=== PATIENT | male | born 1945 | race Caucasian/White ===

== ENCOUNTER 2020-03-15 19:46 | Emergency (ER) | payer MEDICARE ==
[2020-03-15 20:14] LABS: BILIRUBIN,URINE NEGATIVE (NEGATIVE); GLUCOSE, URINE (UA) NEGATIVE (NEGATIVE); KETONES,URINE (UA) NEGATIVE (NEGATIVE); LEUKOCYTE ESTERASE, URINE MODERATE (NEGATIVE); NITRITE,URINE POSITIVE (NEGATIVE); OCCULT BLOOD,URINE MODERATE (NEGATIVE); PROTEIN,URINE 30 mg/dL (NEGATIVE); UROBILINOGEN,URINE 0.2 (NORMAL) E.U./dL (NORMAL)
[2020-03-15 20:17] LABS: CLARITY,URINE HAZY (CLEAR)
[2020-03-15 20:22] LABS: BACTERIA,URINE Many /HPF (None Seen); RBC,URINE TNTC /HPF (0-5); SQUAMOUS EPITHELIAL CELL,UR RARE Squamous (<= Few)
--- NOTE | 2020-03-15 21:15 | ED Physician Documentation ---
History of Present Illness - Stated complaint Stated Complaint: LOW BACK PAIN,FEVER - Chief complaint Chief Complaint: Fever - History obtained from History obtained from: Patient, Family - Additonal information Additional information: Patient comes emergency department complaining of fever and back pain for the last day. Patient has an indwelling Hernández catheter that has been there for about the last 2-1/2 weeks since developing urinary retention. The patient and his are not sure why he developed a urinary retention, but they think that his prostate is enlarged. Patient states that he saw his urologist 3 days ago and they took the catheter out to see if the patient could urinate, but he states that his "bladder was spasming" and that he was not able to urinate on his own. The patient therefore had another catheter placed 3 days ago. He states he did notice that his urine smelled a little funny when he emptied the bag. Then, he began to notice right flank pain and fever and chills today. Patient states otherwise he feels well. No lightheadedness. No nausea or vomiting. No diarrhea. No cough, short us of breath, sore throat, or rhinorrhea. Patient's is very concerned about getting the catheter out and the course of healing of the patient's bladder. She is also concerned because [place] and there adult children are supposed to come stay with them, as well. She states her [id number] is adamant that the patient must have a COVID test before they come up. Patient denies any exposures to anybody with respiratory symptoms or known COVID. No other complaints at this time. Review of Systems Ten Systems: 10 systems reviewed and negative Constitutional: reports: Fever, Chills Eyes: reports: Reviewed and negative Ears: reports: Reviewed and negative Nose: reports: Reviewed and negative Throat: reports: Reviewed and negative Cardiac: reports: Reviewed and negative Respiratory: reports: Reviewed and negative GI: reports: Reviewed and negative Skin: reports: Reviewed and negative Musculoskeletal: reports: Back pain Neurologic: reports: Reviewed and negative Psychiatric: reports: Reviewed and negative Endocrine: reports: Reviewed and negative Immunocompromised: reports: Reviewed and negative PD PAST MEDICAL HISTORY - Past Medical History Past Medical History: Yes Cardiovascular: None Respiratory: None Neuro: None Endocrine/Autoimmune: None GI: None : Benign prostate hypertrophy, Indwelling catheter, Kidney stones HEENT: None Psych: None Musculoskeletal: None Derm: None - Past Surgical History Past Surgical History: No - Present Medications Home Medications: Ambulatory Orders Medication Instructions Recorded Confirmed Levofloxacin [Levaquin] 500 mg PO DAILY 14 Days #14 tablet 03/15/20 - Allergies Allergies/Adverse Reactions: Allergies Allergy/AdvReac Type Severity Reaction Status Date / Time No Known Drug Allergies Allergy Verified 03/15/20 19:57 - Social History Does the pt smoke?: No Smoking Status: Never smoker PD ED PE NORMAL - Vitals Vital signs reviewed: Yes - General General: Alert and oriented X 3, No acute distress, Well developed/nourished, Other (Patient is extremely well-appearing.) - HEENT HEENT: Atraumatic, PERRL, EOMI, Moist mucous membranes - Neck Neck: Supple, no meningeal sign - Cardiac Cardiac: RRR, No murmur, Strong equal pulses - Respiratory Respiratory: No respiratory distress, Clear bilaterally - Abdomen Abdomen: Soft, Non tender, Non distended - Back Back: Other (Mild right CVA tenderness.) - Derm Derm: Normal color, Warm and dry, No rash - Extremities Extremities: No deformity, No edema, No calf tenderness / cord - Neuro Neuro: Alert and oriented X 3, Other (Grossly normal.) - Psych Psych: Normal mood, Normal affect Results - Vitals Vitals: Oxygen O2 Source Room air - Labs Labs: Microbiology 03/15/20 20:10 Urine Culture - Final Urine,Clean Catch Citrobacter Koseri Laboratory Tests 03/15/20 03/15/20 03/15/20 20:10 20:51 20:51 WBC 11.0 H RBC 3.95 L Hgb 13.0 L Hct 38.3 L MCV 97.0 H MCH 32.9 H MCHC 33.9 RDW 12.1 Plt Count 251 MPV 9.5 Neut # (Auto) 9.0 H Lymph # (Auto) 1.[address] [place] # (Auto) 0.8 Eos # (Auto) 0.0 Baso # (Auto) 0.0 Absolute Nucleated RBC 0.00 Nucleated RBC % 0.0 Sodium 134 L Potassium 3.4 L Chloride 97 L Carbon Dioxide 26 Anion Gap 11.0 BUN 16 Creatinine 1.3 H Estimated GFR (MDRD) 54 L Glucose 197 H Calcium 8.7 Total Bilirubin 1.0 AST 36 ALT 40 Alkaline Phosphatase 74 Total Protein 7.3 Albumin 3.7 Globulin 3.6 Albumin/Globulin Ratio 1.0 Lipase 49 Urine Color YELLOW Urine Clarity HAZY Urine pH 6.0 Ur Specific [place] 1.020 Urine Protein 30 H Urine Glucose (UA) NEGATIVE Urine Ketones NEGATIVE Urine Occult Blood MODERATE H Urine Nitrite POSITIVE H Urine Bilirubin NEGATIVE Urine Urobilinogen 0.2 (NORMAL) Ur Leukocyte Esterase MODERATE H Urine RBC TNTC H Urine WBC >25 H Ur Squamous Epith Cells RARE Squamous Urine Bacteria Many H Ur Microscopic Review INDICATED Urine Culture Comments INDICATED Coronavirus (PCR) 03/15/20 22:10 WBC RBC Hgb Hct MCV MCH MCHC RDW Plt Count MPV Neut # (Auto) Lymph # (Auto) [place] # (Auto) Eos # (Auto) Baso # (Auto) Absolute Nucleated RBC Nucleated RBC % Sodium Potassium Chloride Carbon Dioxide Anion Gap BUN Creatinine Estimated GFR (MDRD) Glucose Calcium Total Bilirubin AST ALT Alkaline Phosphatase Total Protein Albumin Globulin Albumin/Globulin Ratio Lipase Urine Color Urine Clarity Urine pH Ur Specific [place] Urine Protein Urine Glucose (UA) Urine Ketones Urine Occult Blood Urine Nitrite Urine Bilirubin Urine Urobilinogen Ur Leukocyte Esterase Urine RBC Urine WBC Ur Squamous Epith Cells Urine Bacteria Ur Microscopic Review Urine Culture Comments Coronavirus (PCR) NEGATIVE PD MEDICAL DECISION MAKING - ED course Complexity details: reviewed results, re-evaluated patient, considered differential, d/w patient, d/w family ED course: The patient was worked up with labs and urinalysis, and found to have a strongly positive he was treated with IV Levaquin for this. His vital signs were completely normal, with a normal heart rate and normal blood pressure, and I did not find evidence of sepsis. I discussed with the patient's that the patient displays absolutely no signs or symptoms of COVID, other than that he has a febrile illness, and that I feel that the likelihood of COVID is almost none. The has asked several times if we can test for COVID and because of the impending family gathering without social distancing, I have agreed to test the patient. I have advised the patient and his that the results, however, will not return for another 24 to 48 hours, and the patient will only be notified if his results are positive. Pt stated he would like to go home, and I felt this was reasonable. We have discussed the usual indications for return. Pt has an appt with his urologist coming up in 4 days. Departure - Departure Disposition: Home, Self Care Clinical Impression: Pyelonephritis Condition: Stable Instructions: ED UTI Pyelonephritis Male Prescriptions: Levofloxacin [Levaquin] 500 mg PO DAILY 14 Days #14 tablet Comments: Your labs, overall, look good. Your urinalysis shows signs of infection, with combined with your fever and pain over the right kidney, indicates a kidney infection. You have no signs or symptoms of COVID at this time. You will be notified if your COVID test is positive. Please follow-up with your primary care physician if you are not feeling better in the next week. You will need to take the full 2-week course of antibiotics to completely eradicate the infection. In the meantime, you should keep your catheter in place until you see your urologist on Thursday. Discharge Date/Time: 03/16/20 00:00
[2020-03-15] MEDS ORDERED: levoFLOXacin 500 MG/100 ML 500 MG/100 ML BAG IV STA (21:54)
[2020-03-15] MEDS ORDERED: KETOROLAC 15 MG/ML VIAL IVP STA (21:54)
[2020-03-15 22:26] LABS: BASOPHILS % (AUTO) 0.4 %; EOSINOPHILS % (AUTO) 0.3 %; LYMPHOCYTES # (AUTO) 1.1 10^3/uL (1.5-3.5); LYMPHOCYTES % (AUTO) 9.9 %; MEAN CORPUSCULAR HEMOGLOBIN 32.9 pg (27.0-31.0); MEAN CORPUSCULAR HGB CONC 33.9 g/dL (32.0-36.0); MEAN PLATELET VOLUME 9.5 fL (7.4-11.4); MONOCYTES # (AUTO) 0.8 10^3/uL (0.0-1.0); MONOCYTES % (AUTO) 7.4 %; NEUTROPHILS % (AUTO) 81.4 %; PLT - PLATELET COUNT 251 10^3/uL (130-450); RED BLOOD COUNT 3.95 10^6/uL (4.70-6.10); RED CELL DISTRIBUTION WIDTH 12.1 % (12.0-15.0)
[2020-03-15 22:36] LABS: ALBUMIN 3.7 g/dL (3.2-5.5); CALCIUM 8.7 mg/dL (8.5-10.3); CREATININE 1.3 mg/dL (0.6-1.2); TOTAL PROTEIN 7.3 g/dL (6.7-8.2)
[2020-03-16] VITALS: BP 122/78
== END 2020-03-16 | disposition home or self-care (01) ==
LOC: ED 19:46
DX: N12 Tubulo-interstitial nephritis, not specified as acute or chronic (principal); Z11.59 Encounter for screening for other viral diseases
CPT/HCPCS: 80053; 81001; 81003; 81599; 83690; 85025; 87077; 87086; 87181; 96365; 96375; 99284

== ENCOUNTER 2020-06-15 11:20 | Emergency (ER) | payer MEDICARE ==
[2020-06-15] MEDS ORDERED: cefTRIAXone 1 GM in SODIUM CHLORIDE 0.9% MINIBAG 100 ML IV STA (11:34)
[2020-06-15] MEDS ORDERED: SODIUM CHLORIDE 0.9% 1,000 ML IV STA ×3 (11:36→20:00)
[2020-06-15 11:54] LABS: BASOPHILS % (AUTO) 0.5 %; EOSINOPHILS % (AUTO) 0.5 %; HGB - HEMOGLOBIN 14.8 g/dL (14.0-18.0); LYMPHOCYTES # (AUTO) 0.5 10^3/uL (1.5-3.5); LYMPHOCYTES % (AUTO) 5.3 %; MEAN CORPUSCULAR HEMOGLOBIN 32.4 pg (27.0-31.0); MEAN CORPUSCULAR HGB CONC 33.8 g/dL (32.0-36.0); MEAN CORPUSCULAR VOLUME 95.8 fL (80.0-94.0); MEAN PLATELET VOLUME 8.7 fL (7.4-11.4); MONOCYTES # (AUTO) 0.6 10^3/uL (0.0-1.0); MONOCYTES % (AUTO) 6.7 %; NEUTROPHILS # (AUTO) 7.4 10^3/uL (1.5-6.6); NEUTROPHILS % (AUTO) 86.4 %; PLT - PLATELET COUNT 227 10^3/uL (130-450); RED BLOOD COUNT 4.57 10^6/uL (4.70-6.10); RED CELL DISTRIBUTION WIDTH 12.6 % (12.0-15.0); WHITE BLOOD COUNT 8.6 x10^3/uL (4.8-10.8)
[2020-06-15 12:06] LABS: ALBUMIN 3.7 g/dL (3.2-5.5); BILIRUBIN,TOTAL 0.9 mg/dL (0.2-1.0); CALCIUM 8.8 mg/dL (8.5-10.3); CREATININE 1.2 mg/dL (0.6-1.2); TOTAL PROTEIN 7.3 g/dL (6.7-8.2)
--- NOTE | 2020-06-15 12:08 | ED Physician Documentation ---
History of Present Illness - Stated complaint Stated Complaint: SHAKING/SPASMS - Chief complaint Chief Complaint: General - History obtained from History obtained from: Patient, Family - History of Present Illness Timing: Today - Additonal information Additional information: 75-year-old male who is had a TURP done 8 days ago at [facility] by Dr. Ortiz has developed acute shaking chills today. He states that following his procedure he had a Hernández catheter placed for 1 week and this Hernández catheter was removed yesterday. He states that he has been able to void without difficulty and was very happy with the results of his operation. He states that from the operation there were about 50 bladder stones removed were removed there was an internal urethral flap and an external urethral flap both of those were removed as well. The patient states that this is the first time is been able to void without difficulty in quite some time. Today he has developed fever and shaking chills and is come to the emergency department. His indicates that he was shaking so hard he was shaking the house. Review of Systems Constitutional: reports: Fever, Chills, Sweats Eyes: denies: Decreased vision Ears: denies: Ear pain Nose: denies: Rhinorrhea / runny nose, Congestion Throat: reports: Sore throat (after intubation last week.) Cardiac: denies: Chest pain / pressure, Palpitations Respiratory: denies: Dyspnea, Cough GI: denies: Abdominal Pain, Nausea, Vomiting, Constipation, Diarrhea : reports: Incontinent. denies: Dysuria, Frequency Skin: denies: Rash Musculoskeletal: denies: Neck pain, Back pain, Extremity pain Neurologic: denies: Generalized weakness, Focal weakness, Numbness PD PAST MEDICAL HISTORY - Past Medical History Cardiovascular: None Respiratory: None Neuro: None Endocrine/Autoimmune: None GI: None : Benign prostate hypertrophy, Indwelling catheter, Kidney stones HEENT: None Psych: None Musculoskeletal: None Derm: None - Past Surgical History Past Surgical History: No - Present Medications Home Medications: Ambulatory Orders Medication Instructions Recorded Confirmed Levofloxacin [Levaquin] 500 mg PO DAILY 14 Days #14 tablet 03/15/20 - Allergies Allergies/Adverse Reactions: Allergies Allergy/AdvReac Type Severity Reaction Status Date / Time No Known Drug Allergies Allergy Verified 06/15/20 11:27 - Social History Does the pt smoke?: No Smoking Status: Never smoker Does the pt drink ETOH?: No Does the pt have substance abuse?: No - Immunizations Immunizations are current?: Yes - POLST Patient has POLST: No PD ED PE NORMAL - Vitals Vital signs reviewed: Yes (febrile and hypertensive ) - General General: Alert and oriented X 3, No acute distress, Well developed/nourished, Other (warm to the touch ) - HEENT HEENT: Atraumatic, PERRL, EOMI - Neck Neck: Supple, no meningeal sign, No bony TTP - Cardiac Cardiac: RRR, No murmur - Respiratory Respiratory: No respiratory distress, Clear bilaterally - Abdomen Abdomen: Normal bowel sounds, Soft, Non tender, Non distended, No organomegaly - Back Back: No CVA TTP, No spinal TTP - Derm Derm: Normal color, Warm and dry, No rash - Extremities Extremities: No deformity, No edema, No calf tenderness / cord - Neuro Neuro: Alert and oriented X 3, small stock facer 2-12 intact, No motor deficit, No sensory deficit, Normal speech Eye Opening: Spontaneous Motor: Obeys Commands Verbal: Oriented GCS Score: 15 - Psych Psych: Normal mood, Normal affect Results - Vitals Vitals: Vital Signs - 24 hr 06/15/20 06/15/20 06/15/20 11:24 11:34 11:57 Temperature 39.5 C H 39.3 C H Heart Rate 90 94 Respiratory 18 19 Rate Blood Pressure 132/93 H 131/81 H 131/81 H O2 Saturation 97 99 06/15/20 06/15/20 06/15/20 12:26 12:30 13:00 Temperature 39.6 C H 39.3 C H Heart Rate 78 98 102 H Respiratory 19 18 18 Rate Blood Pressure 128/58 L 124/59 L 117/59 L O2 Saturation 95 98 98 06/15/20 06/15/20 06/15/20 13:30 14:00 14:30 Temperature 38.6 C H Heart Rate 89 84 81 Respiratory 14 18 15 Rate Blood Pressure 122/61 117/59 L 112/64 O2 Saturation 98 98 96 06/15/20 06/15/20 06/15/20 15:00 15:59 16:00 Temperature 38.2 C H Heart Rate 85 72 73 Respiratory 18 18 12 Rate Blood Pressure 110/58 L 122/71 109/56 L O2 Saturation 98 94 95 06/15/20 06/15/20 16:30 17:00 Temperature 37.2 C Heart Rate 69 69 Respiratory 18 22 Rate Blood Pressure 106/60 103/61 O2 Saturation 94 97 Oxygen O2 Source Room air - Labs Labs: Laboratory Tests 06/15/20 06/15/20 06/15/20 11:38 11:42 11:42 WBC 8.6 RBC 4.57 L Hgb 14.8 Hct 43.8 MCV 95.8 H MCH 32.4 H MCHC 33.8 RDW 12.6 Plt Count 227 MPV 8.7 Neut # (Auto) 7.4 H Lymph # (Auto) 0.5 L [place] # (Auto) 0.6 Eos # (Auto) 0.0 Baso # (Auto) 0.0 Absolute Nucleated RBC 0.00 Nucleated RBC % 0.0 Sodium 135 Potassium 3.8 Chloride 99 L Carbon Dioxide 27 Anion Gap 9.0 BUN 17 Creatinine 1.2 Estimated GFR (MDRD) 59 L Glucose 123 H Lactic Acid Calcium 8.8 Total Bilirubin 0.9 AST 27 ALT 18 Alkaline Phosphatase 66 Total Protein 7.3 Albumin 3.7 Globulin 3.6 Albumin/Globulin Ratio 1.0 Urine Color YELLOW Urine Clarity CLEAR Urine pH 7.0 Ur Specific [place] 1.020 Urine Protein TRACE Urine Glucose (UA) NEGATIVE Urine Ketones NEGATIVE Urine Occult Blood LARGE H Urine Nitrite NEGATIVE Urine Bilirubin NEGATIVE Urine Urobilinogen 0.2 (NORMAL) Ur Leukocyte Esterase TRACE H Urine RBC TNTC H Urine WBC 6-10 H Ur Squamous Epith Cells FEW Squamous Urine Bacteria Rare Urine Culture Comments INDICATED 06/15/20 11:42 WBC RBC Hgb Hct MCV MCH MCHC RDW Plt Count MPV Neut # (Auto) Lymph # (Auto) [place] # (Auto) Eos # (Auto) Baso # (Auto) Absolute Nucleated RBC Nucleated RBC % Sodium Potassium Chloride Carbon Dioxide Anion Gap BUN Creatinine Estimated GFR (MDRD) Glucose Lactic Acid 1.9 Calcium Total Bilirubin AST ALT Alkaline Phosphatase Total Protein Albumin Globulin Albumin/Globulin Ratio Urine Color Urine Clarity Urine pH Ur Specific [place] Urine Protein Urine Glucose (UA) Urine Ketones Urine Occult Blood Urine Nitrite Urine Bilirubin Urine Urobilinogen Ur Leukocyte Esterase Urine RBC Urine WBC Ur Squamous Epith Cells Urine Bacteria Urine Culture Comments PD MEDICAL DECISION MAKING - ED course Complexity details: reviewed old records, reviewed results, re-evaluated patient, considered differential, d/w patient, d/w family ED course: 75-year-old male with a recent surgical procedure to his bladder is 8 days postoperative and he has now developed acute shaking chills and there is evidence of infection in the urine. His white blood cell count and lactate are normal and he is administered Rocephin and saline blood pressure is stable. He was quite febrile here in the emergency department. Dr. Colin is consulted in the case and recommends CT to assure there is no obstruction and then treat here and add vancomycin. The patient CT scan does show evidence of obstruction with a stone of 8 mm x 1.2 cm. Urologic consultation for transfer is sought through [facility] and the triage doctor at [facility] is working on this at shift change. Care of the patient is turned over to Dr. Clement Guardado. Departure - Departure Disposition: 02 Transfer Acute Care Hosp Clinical Impression: SIRS (systemic inflammatory response syndrome), Ureterolithiasis Urinary tract infection Qualifiers: Urinary tract infection type: acute cystitis Hematuria presence: with hematuria Qualified Code(s): N30.01 - Acute cystitis with hematuria Condition: Stable
[2020-06-15 12:15] LABS: BILIRUBIN,URINE NEGATIVE (NEGATIVE); GLUCOSE, URINE (UA) NEGATIVE (NEGATIVE); KETONES,URINE (UA) NEGATIVE (NEGATIVE); LEUKOCYTE ESTERASE, URINE TRACE (NEGATIVE); NITRITE,URINE NEGATIVE (NEGATIVE); OCCULT BLOOD,URINE LARGE (NEGATIVE); PROTEIN,URINE TRACE mg/dL (NEGATIVE); UROBILINOGEN,URINE 0.2 (NORMAL) E.U./dL (NORMAL)
[2020-06-15 12:22] LABS: CLARITY,URINE CLEAR (CLEAR)
[2020-06-15 12:27] LABS: BACTERIA,URINE Rare /HPF (None Seen); RBC,URINE TNTC /HPF (0-5); SQUAMOUS EPITHELIAL CELL,UR FEW Squamous (<= Few)
[2020-06-15] MEDS ORDERED: VANCOMYCIN INJ 1.25 GM in SODIUM CHLORIDE 0.9% 250 ML IV SCH (13:00)
[2020-06-15] MEDS ORDERED: IOVERSOL 320 100 ML VIAL IVP ONE ×2 (13:22→13:38)
--- NOTE | 2020-06-15 14:41 | CT Report ---
PROCEDURE: Abdomen/Pelvis W INDICATIONS: sepsis CONTRAST: IV CONTRAST: Optiray 320 ml: 100 PO CONTRAST: *NO PO CONTRAST TECHNIQUE: After the administration of intravenous contrast, 5 mm thick sections acquired from the diaphragms to the symphysis. 5 mm thick coronal and sagittal reformats were acquired. For radiation dose reducti on, the following was used: automated exposure control, adjustment of mA and/or kV according to miriam ent size. COMPARISON: None. FINDINGS: Image quality: Excellent. ABDOMEN: Lung bases: Mild bibasilar atelectasis. Heart size is normal. Solid organs: There is hepatic steatosis. Liver and spleen are normal in size and enhancement. Gall bladder is normal Biliary system is non dilated. Pancreas enhances normally. No adrenal nodules. Kidneys demonstrate normal size and enhancement. There is moderate right hydronephrosis. A 9 mm obstr uctive stone is seen in the proximal right ureter. Mild left hydronephrosis is present. There is a 3 mm nonobstructive stone in the left kidney. 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 There are bilateral renal cortical cysts. Mild bilateral hydroureters, which are dilated to the level of the UVJs. Peritoneum and bowel: Bowel loops demonstrate normal wall thickness and caliber. No free fluid or a ir. Nodes and vessels: No retroperitoneal or mesenteric adenopathy by size criteria. Aorta and inferior vena cava are normal in size. Miscellaneous: No ventral hernias. PELVIS: Genitourinary: Bladder wall is thickened consistent with cystitis. There are several calcific densi ty embedded within the bladder wall. There is air within the bladder lumen. There is a central defect in the prosthetic urethral, probably related to TURP. There is a small bladder diverticulum on the r ight side. Miscellaneous: No inguinal hernias or adenopathy. Bones: No suspicious bony lesions. No vertebral body compression fractures. Moderate degenerative c hanges in lumbar spine. IMPRESSION: 1. A 9 mm obstructive stone in the proximal right ureter causing moderate right hydronephrosis. 2. Mild left hydronephrosis is present. Obstructive stone is seen on the left side. There is a 3 mm n onobstructing stone in left kidney. 3. Mild bilateral hydroureters with ureter is mildly dilated to the level of the UVJs. 4. Thickening of the bladder consistent with cystitis. There is air collection in the bladder lumen, which may be secondary to gas-forming bacteria infection or iatrogenic. Calcific foci are present em bedded in the bladder wall. No stones are identified within the bladder lumen. 5. Small bladder diverticulum. Reviewed by: Keesha Raines MD on 06/15/2020 2:39 PM PDT Approved by: Keesha Raines MD on 06/15/2020 2:39 PM PDT Station ID: [id number]
[2020-06-15] MEDS ORDERED: ACETAMINOPHEN 325 MG TABLET PO STA (20:00)
--- NOTE | 2020-06-15 20:15 | ED Physician Documentation ---
ED Addendum - Addendum Addendum: 06/15/20 20:13 Patient was signed out to [place] by Dr. Lenz awaiting transfer. Patient was accepted to [facility] by Dr. Elizabeth Zimmer. COBRA forms completed. IV fluids continued. Antibiotics continued. Patient hemodynamically stable throughout his emergency department stay. Patient is well-appearing, nontoxic. Patient transferred to [facility]. Method of transportation and level of care for transfer was arranged for and determined by [place]. This document was made in part using voice recognition software. While efforts are made to proofread this document, sound alike and grammatical errors may occur. Departure - Departure Disposition: 02 Transfer Acute Care Hosp Clinical Impression: SIRS (systemic inflammatory response syndrome), Ureterolithiasis, Pyelonephritis Urinary tract infection Qualifiers: Urinary tract infection type: acute cystitis Hematuria presence: with hematuria Qualified Code(s): N30.01 - Acute cystitis with hematuria Condition: Stable
[2020-06-15] MEDS ORDERED: IBUPROFEN 800 MG TABLET PO STA (20:54)
[2020-06-15 21:43] VITALS: BP 116/71
== END 2020-06-15 21:50 | disposition short-term general hospital (02) ==
LOC: ED 11:20
DX: N13.6 Pyonephrosis (principal); R65.10 Systemic inflammatory response syndrome (SIRS) of non-infectious origin without acute organ dysfunction; N30.01 Acute cystitis with hematuria; Z98.890 Other specified postprocedural states
CPT/HCPCS: 36415; 74177; 80053; 81001; 83605; 85025; 87040; 87086; 96365; 96366; 96367; 99284; 99285; A9270; J3370; Q9967; 87077; 87181

== ENCOUNTER 2021-05-11 12:39 | Outpatient (CLI) | payer MEDICARE | END 2021-05-11 12:40 | disposition short-term general hospital (02) | LOC: EMS 12:39 | DX: S42.402B Unspecified fracture of lower end of left humerus, initial encounter for open fracture (principal); V18.4XXA Pedal cycle driver injured in noncollision transport accident in traffic accident, initial encounter; Y93.55 Activity, bike riding; Y92.828 Other wilderness area as the place of occurrence of the external cause | CPT/HCPCS: A0425; A0427 ==